=== PATIENT | male | born 2000 | race Two or more races ===

== ENCOUNTER 2024-11-11 04:18 | Emergency (ER) | payer MEDICAID ==
[~2024-11-11] VITALS: Ht 175.3 cm; Wt 107.8 kg
[2024-11-11 04:40] VITALS: TEMP 97.7; O2SAT 98
[2024-11-11] MEDS: PANTOPRAZOLE 40 MG TAB PO ONE (04:56)
[2024-11-11 04:57] VITALS: BP 147/75; PULSE 76; RESP 14
[2024-11-11] MEDS: MORPHINE SULFATE INJ 2 MG/ml SYRG IM ONE (04:57)
--- NOTE | 2024-11-11 05:10 | ED.PDOC ---
History of Present Illness HPI Comments This is a 24-year-old male with no past medical history who presented to the ER with a chief complaint of epigastric abdominal pain starting earlier this midnight, patient reports that he had dinner at 4:00 p.m. and he experienced severe epigastric pain which kept on worsening, does not radiate, denies nausea or vomiting, denies any fever or chills, denies any urinary symptoms. Patient had never experienced this severe pain in his life. He took Motrin 6 tablets which did not improve his condition. Patient seen and examined in the ER. CBC, CMP pending. Pantoprazole given. Morphine IM been given. Chief Complaint: Abdominal Pain Time Seen by MD: 04:21 Allergies: Coded Allergies: NO KNOWN ALLERGIES (Unverified , 11/11/24) Home Meds Active Scripts Pantoprazole Sodium Sesquihydr (Pantoprazole Sodium) 40 Mg Tab, 40 MG PO DAILY for 28 Days, #28 TAB 0 Refills Prov:SARAH FERGUSON RESIDENT 11/11/24 Information Source: Patient Mode of Arrival: Ambulatory Past Medical History PAST MEDICAL HISTORY: Denies Constitutional: denies: chills, diaphoresis, fatigue, fever, malaise, sweats, weakness, others EENTM: denies: blurred vision, double vision, ear bleeding, ear discharge, ear drainage, ear pain, ear ringing, eye pain, eye redness, hearing loss, mouth pain, mouth swelling, nasal discharge, nose bleeding, nose congestion, nose pain, photophobia, tearing, throat pain, throat swelling, voice changes, others Respiratory: denies: cough, hemoptysis, orthopnea, SOB at rest, shortness of breath, SOB with excertion, stridor, wheezing, others Cardiovascular: denies: chest pain, dizzy spells, diaphoresis, Dyspnea on exertion, edema, irregular heart beat, left arm pain, lightheadedness, palpitations, PND, syncope, others Gastrointestinal: reports: abdominal pain Genitourinary: denies: burning, dysuria, flank pain, frequency, hematuria, incontinence, penile discharge, penile sore, pain, testicle pain, testicle swelling, urgency, others Neurological: denies: dizziness, fainting, headache, left sided numbness, left sided weakness, numbness, paresthesia, pre-existing deficit, right sided numbness, right sided weakness, seizure, speech problems, tingling, tremors, weakness, others Musculoskeletal: denies: back pain, gout, joint pain, joint swelling, muscle pain, muscle stiffness, neck pain, others Integumetry: denies: bruises, change in color, change in hair/nails, dryness, laceration, lesions, lumps, rash, wounds, others Allergic/Immunocompromised: denies: Difficulty Healing, Frequent Infections, Hives, Itching, others Hematologic/Lymphatic: denies: anemia, blood clots, easy bleeding, easy bruising, swollen glands, others Endocrine: denies: excessive hunger, excessive sweating, excessive thirst, excessive urination, flushing, intolerance to cold, intolerance to heat, unexplained weight gain, unexplained weight loss, others Psychiatric: denies: anxiety, bipolar disorder, depression, hopeless, panic disorder, schizophrenia, sleepless, suicidal, others Physical Exam General Appearance: No Apparent Distress, Normal HEENT: Normal ENT Inspection, Pharynx Normal, TMs Normal Neck: Full Range of Motion, Non-Tender, Normal, Normal Inspection Respiratory: Chest Non-Tender, Lungs Clear, No Accessory Muscle Use, No Respiratory Distress, Normal Breath Sounds Cardiovascular: No Edema, No JVD, No Murmur, No Gallop, Normal Peripheral Pulses, Regular Rate/Rhythm Breast Exam: Deferred Gastrointestinal: Epigastric, No Organomegaly, No Pulsatile Mass, Normal Bowel Sounds, Soft, Tenderness Genitalia: Deferred Pelvic: Deferred Rectal: Deferred Extremities: No calf tenderness, Normal capillary refill, Normal inspection, Normal range of motion, Non-tender, No pedal edema Musculoskeletal : Apperance: Normal Neurologic: Alert, middle school tutor II-XII nml as Tested, No Motor Deficits, Normal Affect, Normal Mood, No Sensory Deficits Cerebellar Function: Normal Reflexes: Normal Skin: Dry, Normal Color, Warm Lymphatic: No Adenopathy Was a procedure done? Was a procedure done?: No Differential Dx Considerations may include: Peptic ulcer disease/esophageal spasm/colitis/nephrolithiasis X-Ray, Labs, Meds, VS Vital Signs Date Time Temp Pulse Resp B/P (MAP) Pulse Ox O2 Delivery O2 Flow Rate FiO2 11/11/24 04:57 76 14 147/75 11/11/24 04:40 Room Air* 0 21 11/11/24 04:40 97.7 76 14 147/75 (99) 98 97.7 11/11/24 04:20 98.1 75 18 166/85 96 98.1 Lab Test 11/11/24 04:55 Range/Units White Blood Count 9.7 4.4-10.8 10^3/uL Red Blood Count 5.59 4.5-5.90 10^6/uL Hemoglobin 16.8 13.5-17.5 g/dL Hematocrit 47.7 41.0-53.0 % Mean Corpuscular Volume 85.4 80.0-100.0 fL Mean Corpuscular Hemoglobin 30.1 28.0-32.0 pg Mean Corpuscular Hemoglobin Concent 35.3 32.0-36.0 g/dL Red Cell Distribution Width 13.8 11.8-14.3 % Platelet Count 277 140-450 10^3/uL Mean Platelet Volume 9.3 6.9-10.8 fL Neutrophils (%) (Auto) 70.2 37.0-80.0 % Lymphocytes (%) (Auto) 20.7 10.0-50.0 % Monocytes (%) (Auto) 5.8 0.0-12.0 % Eosinophils (%) (Auto) 2.9 0.0-7.0 % Basophils (%) (Auto) 0.4 0.0-2.0 % Neutrophils # (Auto) 6.8 1.6-8.6 10 ^3/uL Lymphocytes # (Auto) 2.0 0.4-5.4 10 ^3/uL Monocytes # (Auto) 0.6 0-1.3 10 ^3/uL Eosinophils # (Auto) 0.3 0-0.8 10 ^3/uL Basophils # (Auto) 0 0-0.2 10 ^3/uL Nucleated Red Blood Cells 0.1 % Sodium Level 137 136-145 mmol/L Potassium Level 3.6 3.5-5.1 mmol/L Chloride Level 102 98-107 mmol/L Carbon Dioxide Level 22 20-31 mmol/L Anion Gap 13 5-15 Blood Urea Nitrogen 6 L 9-23 mg/dL Creatinine 0.77 0.700-1.30 mg/dL Glomerular Filtration Rate Calc 127 >90 mL/min BUN/Creatinine Ratio 7.8 L 10.0-20.0 Serum Glucose 356 H 74-106 mg/dL Calcium Level 9.4 8.7-10.4 mg/dL Total Bilirubin 0.8 0.2-1.0 mg/dL Aspartate Amino Transferase (AST) 105 H 13-40 U/L Alanine Aminotransferase (ALT) 164 H 7-40 U/L Alkaline Phosphatase 106 46-116 U/L Total Protein 8.1 5.7-8.2 g/dL Albumin 4.5 3.2-4.8 g/dL Current Medications Medications (Trade) Dose Ordered Sig/Jnen Route Start Time Stop Time Status Last Admin Morphine Sulfate 1 mg ONCE ONCE IM 11/11/24 04:45 11/11/24 04:46 DC 11/11/24 04:57 Pantoprazole Sodium (Protonix Tablet) 40 mg ONCE ONCE PO 11/11/24 04:45 11/11/24 04:46 DC 11/11/24 04:56 X-Ray, Labs, Meds, VS Comment CBC, CMP Time of 1ST Reevaluation: 05:00 Reevaluation 1ST: Improved Time of 2ND Reevaluation: 06:00 Reevaluation 2ND: Resolved Patient Education/Counseling: Diagnosis, Treatment, Prognosis, Need For Follow Up Family Education/Counseling: No Family Present SEPSIS Sepsis Screen Date sepsis recognized/suspect: Nov 11, 2024 Time Sepsis recognized/suspect: 419 Recent Procedure: No On Antibiotic Therapy: No Respiratory Rate >20: No Heart Rate >90: No Temp<36 C (96.8 F) or >38.3 C: No SBP <90 or MAP <65 mmHG: No New Acute Mental Status Change: No Is the patient on CPAP, BIPAP,: No Vital Signs Date Time Temp Pulse Resp B/P (MAP) Pulse Ox O2 Delivery O2 Flow Rate FiO2 11/11/24 04:57 76 14 147/75 11/11/24 04:40 Room Air* 0 21 11/11/24 04:40 97.7 76 14 147/75 (99) 98 97.7 11/11/24 04:20 98.1 75 18 166/85 96 98.1 Laboratory Tests Test 11/11/24 04:55 White Blood Count 9.7 10^3/uL (4.4-10.8) Medications Medications Dose Ordered Sig/Jenn Route Start Time Stop Time Status Last Admin Dose Admin Morphine Sulfate 1 mg ONCE ONCE IM 11/11/24 04:45 11/11/24 04:46 DC 11/11/24 04:57 Pantoprazole Sodium 40 mg ONCE ONCE PO 11/11/24 04:45 11/11/24 04:46 DC 11/11/24 04:56 Departure 1 Departure Time of Disposition: 06:30 Impression: Primary Impression: GERD (gastroesophageal reflux disease) Disposition: 01 HOME / SELF CARE / HOMELESS Condition: Stable e-Prescriptions Pantoprazole Sodium Sesquihydr (Pantoprazole Sodium) 40 Mg Tab 40 MG PO DAILY for 28 Days, #28 TAB 0 Refills Prov: SARAH FERGUSON RESIDENT 11/11/24 Critical Care Note Critical Care Time?: No Stability Stability form required: No SARAH FERGUSON RESIDENT Nov 11, 2024 05:10
[2024-11-11 05:20] LABS: Hematocrit 47.7 % (41.0-53.0); Hemoglobin 16.8 g/dL (13.5-17.5); Mean Corpuscular Hemoglobin 30.1 pg (28.0-32.0); Mean Corpuscular Volume 85.4 fL (80.0-100.0); Nucleated Red Blood Cells % 0.1 %
[2024-11-11 05:29] LABS: Albumin 4.5 g/dL (3.2-4.8); Alkaline Phosphatase 106 U/L (46-116); Anion Gap 13 (5-15); BUN/Creatinine Ratio 7.8 (10.0-20.0); Bilirubin, Total 0.8 mg/dL (0.2-1.0); Calcium 9.4 mg/dL (8.7-10.4); Carbon Dioxide 22 mmol/L (20-31); Chloride 102 mmol/L (98-107); Potassium 3.6 mmol/L (3.5-5.1); Sodium 137 mmol/L (136-145); Total Protein 8.1 g/dL (5.7-8.2)
[2024-11-11 05:31] LABS: Alanine Aminotransferase 164 U/L (7-40); Blood Urea Nitrogen 6 mg/dL (9-23); Glucose 356 mg/dL (74-106)
[2024-11-11] MEDS ORDERED: PANT40T PO (06:16)
== END 2024-11-11 06:54 | disposition home or self-care (01) ==
LOC: ER 04:18
DX: K21.9 Gastro-esophageal reflux disease without esophagitis (principal); Z79.899 Other long term (current) drug therapy
CPT/HCPCS: 36415; 80053; 83690; 85025; 96372; 99283; J2270

== ENCOUNTER 2024-11-11 08:54 | Inpatient (IN) | payer MEDICAID ==
[~2024-11-11] VITALS: Ht 175.3 cm; Wt 110.0 kg
[~2024-11-11 08:54] MED LIST: PANT40T PO
[2024-11-11] MEDS: SODIUM CHLORIDE 0.9% 1,000 ML IV ONE (10:21)
--- NOTE | 2024-11-11 10:34 | DVH ---
CLINICAL HISTORY: Pancreatitis TECHNIQUE: CT of the abdomen and pelvis was performed without IV contrast. This exam was performed ac cording to our departmental dose optimization program. Up-to-date CT equipment and radiation dose red uction techniques are utilized as appropriate. CTDI 24 DLP 1366 COMPARISON: None FINDINGS: Abdomen/Pelvis: The spleen, pancreas, adrenal glands, gallbladder, kidneys, bladder, and prostate gland are grossly u nremarkable. The liver is enlarged, measuring 32.2 cm in diameter. There is diffuse hepatic steatosis. The abdominal aorta is normal in course and caliber. There are no significant atherosclerotic calcifi cations. There is no free intraperitoneal air or fluid. There is no enlarged abdominal pelvic lymph node. There is no bowel wall thickening or dilatation. The appendix is normal. Other: The imaged lower thorax is unremarkable. No acute osseous abnormality is evident. Impression: No acute noncontrast CT abnormality in the abdomen or pelvis. Hepatomegaly with diffuse hepatic steatosis.
--- NOTE | 2024-11-11 10:36 | ED.PDOC ---
GI ASSESSMENT HPI Comments Cesar Zuñiga is a 24-year-old male, with no relevant past medical history. The patient presented today to the ED with chief complain of abdominal pain, 8/10, cramp-like, that started at midnight, the pain localized in the epigastric area without irradiation, associated with nausea. The patient denies vomit, fever, chills, diarrhea, urinary symptoms, weight loss or other. First time of the episode. On further questioning the patient reports he has not seen a doctor in more than 4 years, he recently has relocated to the [facility]. Today, the pain progressed to 9/10, this prompted his visit to the ED. On the ED, CBC showed WBC 9.7, Glucose 356mg/dl, Lipase: 327, AST 105, ALT 164. Morphine was administrated and the pain improved 3/10. A CT Abd/Pelvis has been ordered. The patient will be admitted for further assessment and management. Chief Complaint: Abdominal Pain Time Seen by MD: 08:56 Reviewed Notes: Nurses Notes, Medications, Allergies Allergies: Coded Allergies: NO KNOWN ALLERGIES (Unverified , 11/11/24) Home Meds Active Scripts Pantoprazole Sodium Sesquihydr (Pantoprazole Sodium) 40 Mg Tab, 40 MG PO DAILY for 28 Days, #28 TAB 0 Refills Prov:SARAH FERGUSON RESIDENT 11/11/24 Information Source: Patient, Relative (Mother) Mode of Arrival: Ambulatory Timing: Hours Duration: Since onset Quality: Cramping Vomitus: None Stool: Normal Severity: Moderate Recent: None Recent Hx of: None Pain Location: Epigastric Modifying Factors: Food Past Medical History PAST MEDICAL HISTORY: Denies Physical Exam General Appearance: Moderate Distress HEENT: Normal ENT Inspection, Pharynx Normal, TMs Normal Neck: Full Range of Motion, Non-Tender, Normal, Normal Inspection Respiratory: Chest Non-Tender, Lungs Clear, No Accessory Muscle Use, No Respiratory Distress, Normal Breath Sounds Cardiovascular: No Edema, No JVD, No Murmur, No Gallop, Normal Peripheral Pulses, Regular Rate/Rhythm Breast Exam: Deferred Gastrointestinal: Epigastric, Normal Bowel Sounds, Tenderness (Tenderness over the epigastric area.), Other (Non distended, bowel movements present, soft, epigastric area is tender to deep palpation. ) Genitalia: Deferred Pelvic: Deferred Rectal: Deferred Extremities: No calf tenderness, Normal capillary refill, Normal inspection, Normal range of motion, Non-tender, No pedal edema Neurologic: Alert, spine specialist II-XII nml as Tested, No Motor Deficits, Normal Affect, Normal Mood, No Sensory Deficits Cerebellar Function: Normal Reflexes: Normal Skin: Dry, Normal Color, Warm Lymphatic: No Adenopathy Was a procedure done? Was a procedure done?: No GI differential Dx Differential Diagnosis: Cholecystitis, Gastritis/PUD, Gastroenteritis, Pancreatitis X-Ray, Labs, Meds, VS Vital Signs Date Time Temp Pulse Resp B/P (MAP) Pulse Ox O2 Delivery O2 Flow Rate FiO2 11/11/24 10:14 98.1 95 19 146/76 (99) 95 98.1 11/11/24 08:56 97.8 103 18 144/81 96 97.8 Current Medications Medications (Trade) Dose Ordered Sig/Jenn Route Start Time Stop Time Status Last Admin Sodium Chloride 1,000 ml @ 75 mls/hr [id number] ONCE IV 11/11/24 10:00 11/11/24 13:12 DC 11/11/24 10:21 X-Ray, Labs, Meds, VS Comment The patient is been re-evaluated, VS, BP 146/76, 95bpm. Pain level has improved 3/10. CT abdomen shows: No acute noncontrast CT abnormality in the abdomen or pelvis. Hepatomegaly with diffuse hepatic steatosis. The patient will be admitted for further assessment and management. Time of 1ST Reevaluation: 11:50 Reevaluation 1ST: Improved Patient Education/Counseling: Diagnosis, Treatment, Prognosis, Need For Follow Up Family Education/Counseling: Diagnosis, Treatment, Prognosis SEPSIS Sepsis Screen Date sepsis recognized/suspect: Nov 11, 2024 Time Sepsis recognized/suspect: 0857 Recent Procedure: No On Antibiotic Therapy: No Respiratory Rate >20: No Heart Rate >90: Yes Temp<36 C (96.8 F) or >38.3 C: No SBP <90 or MAP <65 mmHG: No New Acute Mental Status Change: No Is the patient on CPAP, BIPAP,: No Physician Orders Npo (Nothing By Mouth) Diet (11/11/24 Lunch) Ct Ab Pel Wo Con-No Oral Or Iv (11/11/24 09:47) Vital Signs Date Time Temp Pulse Resp B/P (MAP) Pulse Ox O2 Delivery O2 Flow Rate FiO2 11/11/24 10:14 98.1 95 19 146/76 (99) 95 98.1 11/11/24 08:56 97.8 103 18 144/81 96 97.8 Medications Medications Dose Ordered Sig/Jenn Route Start Time Stop Time Status Last Admin Dose Admin Sodium Chloride 1,000 ml @ 75 mls/hr [id number] ONCE IV 11/11/24 10:00 11/11/24 13:12 DC 11/11/24 10:21 Departure 1 Departure Time of Disposition: 11:55 Impression: Primary Impression: Acute pancreatitis Additional Impression: Uncontrolled diabetes mellitus Disposition: ADMITTED INPATIENT Admit to: Med Surg Condition: Good Comments Goals of care discussed with the patient > 35 min. Discussed plan of care with Dr. Carballo Code status: Full code PCP: No established yet. Upon discharge, will be sent to D/C clinic Plan discussed with: Patient and his mother, the patient agrees with the admission plan. Critical Care Note Critical Care Time?: No Stability Stability form required: No Heart Score Heart Score: Heart Score Response (Comments) Value History N/A 0 EKG N/A 0 Age N/A 0 Risk Factors N/A 0 Troponin N/A 0 Total 0 AGA SIMMS RESIDENT Nov 11, 2024 10:36
--- NOTE | 2024-11-11 12:49 | DVHHP2 ---
History of Present Illness Reason for Visit: Abdominal pain with nausea History of Present Illness Cesar Goodman is a 24-year-old male with no past medical history who reports to the ED with epigastric abdominal pain with nausea, reports it as 5/10 sharp and constant. He also endorses that it started last night. He states that it is worse when eating. He states that there are no alleviating factors. Patient also reports that he had some nausea but no vomiting. He also endorses that he likes to eat spicy foods. Patient denies any recent trauma or injury, recent sick contacts, recent travels, recent ingestion of spoiled food, chest pain, shortness of breath, fever, chills, lightheadedness, weakness, dizziness, vomiting, diarrhea, or urinary symptoms. Past Surgical History: None Family History: DM, Other (Mom with diabetes) Smoke: No ALCOHOL: none Drugs: None Lives: with Family Domestic Violence: Neg Review of Systems Gastrointestinal: Nausea, Abdominal Pain Allergies: Coded Allergies: NO KNOWN ALLERGIES (Unverified , 11/11/24) Exam Vital Signs Vital Signs Date Time Temp Pulse Resp B/P (MAP) Pulse Ox O2 Delivery O2 Flow Rate FiO2 11/11/24 10:14 98.1 95 19 146/76 (99) 95 98.1 General Appearance: Alert, Oriented X3, Cooperative, No acute distress HEENT: Atraumatic, PERRLA, EOMI, Mucous membr. moist/pink Respiratory: Clear to auscultation, Normal air movement Cardiovascular: Normal S1, Normal S2, No murmurs Abdominal: Normal bowel sounds, Soft Extremities: No clubbing, No cyanosis, No edema, Normal pulses, No tenderness/swelling Neuro: Normal gait, Normal speech, Strength at 5/5 X4 ext, Normal tone, Sensation intact Psych/Mental Status: Mental status NL, Mood NL Labs/Xrays CLINICAL HISTORY: Pancreatitis TECHNIQUE: CT of the abdomen and pelvis was performed without IV contrast. This exam was performed according to our departmental dose optimization program. Up-to-date CT equipment and radiation dose reduction techniques are utilized as appropriate. CTDI 24 DLP 1366 COMPARISON: None FINDINGS: Abdomen/Pelvis: The spleen, pancreas, adrenal glands, gallbladder, kidneys, bladder, and prostate gland are grossly unremarkable. The liver is enlarged, measuring 32.2 cm in diameter. There is diffuse hepatic steatosis. The abdominal aorta is normal in course and caliber. There are no significant atherosclerotic calcifications. There is no free intraperitoneal air or fluid. There is no enlarged abdominal pelvic lymph node. There is no bowel wall thickening or dilatation. The appendix is normal. Other: The imaged lower thorax is unremarkable. No acute osseous abnormality is evident. Impression: No acute noncontrast CT abnormality in the abdomen or pelvis. Hepatomegaly with diffuse hepatic steatosis. INDICATION: r/o pancreatitis TECHNIQUE: Multiple real-time sonographic images were obtained of the right upper quadrant. COMPARISON: None FINDINGS: The liver demonstrates increased echotexture without focal mass lesions. The liver measures 25.5 cm. There is no intrahepatic or extrahepatic ductal dilatation. The common duct measures 0.4 cm. The gallbladder is without evidence of stone or sludge. The gallbladder wall measures 0.2 cm and is within normal limits. The right kidney measures 13.5 cm. The right kidney is normal in contour, size, and shape. The echogenicity is normal. There is no hydronephrosis. The pancreas is not well visualized due to overlying bowel gas. IMPRESSION: No sonographic evidence of gallstones or acute cholecystitis. Hepatic steatosis and hepatomegaly. SEPSIS Sepsis Screen Date sepsis recognized/suspect: Nov 11, 2024 Time Sepsis recognized/suspect: 0857 Recent Procedure: No On Antibiotic Therapy: No Respiratory Rate >20: No Heart Rate >90: Yes Temp<36 C (96.8 F) or >38.3 C: No SBP <90 or MAP <65 mmHG: No New Acute Mental Status Change: No Is the patient on CPAP, BIPAP,: No Physician Orders Npo (Nothing By Mouth) Diet (11/11/24 Lunch) Sodium Chloride 0.9% (11/11/24 10:00) Ct Ab Pel Wo Con-No Oral Or Iv (11/11/24 09:47) Complete Blood Count (11/11/24 12:45) Basic Metabolic Panel (11/11/24 12:45) Vital Signs Date Time Temp Pulse Resp B/P (MAP) Pulse Ox O2 Delivery O2 Flow Rate FiO2 11/11/24 10:14 98.1 95 19 146/76 (99) 95 98.1 11/11/24 08:56 97.8 103 18 144/81 96 97.8 Medications Medications Dose Ordered Sig/Jenn Route Start Time Stop Time Status Last Admin Dose Admin Sodium Chloride 1,000 ml @ 75 mls/hr [id number] ONCE IV 11/11/24 10:00 11/11/24 23:19 11/11/24 10:21 75 MLS/HR Assessment/Plan Assessment/Plan Assessment Intractable abdominal pain with nausea Biliary colic ? Acute pancreatitis Hyperglycemia Diabetes Transaminitis Hyperlipasemia Hepatomegaly with diffuse hepatic steatosis Obesity Plan Admit to med surge Antiemetics Pain management CT abdomen and pelvis noted Trend LFTs Hemoglobin A1c ISS and Accu-Cheks CBC/BMP Abdominal ultrasound NPO until symptoms resolve IV fluids No home medications per patient DVT prophylaxis-not indicated patient ambulating PUD prophylaxis-not indicated history of GERD or GI bleed Discussed plan of care with patient and nurse Diabetic education Counseled patient on lifestyle modifications, diet, and exercise [id number] Preventive counseling healthy eating habits, physical activity, and regular checkups Plan discussed with: Patient My Orders Orders - AKSHAT NANCE Procedure Category Date Status Time Complete Blood Count LAB 11/11/24 Transmitted 12:45 Basic Metabolic Panel LAB 11/11/24 Transmitted 12:45 Date of Service: Nov 11, 2024 Billing Provider: AKSHAT NANCE Common Visit Codes: [id number] INP/OBS CARE (HIGH) Secondary Visit Codes: [id number] COUNSELING IND AKSHAT NANCE Nov 11, 2024 12:49
[2024-11-11] MEDS ORDERED: DEXTROSE (50%) 50ML SYRG IV PRN (13:00)
[2024-11-11] MEDS ORDERED: HYDROmorphone HCL 2 MG/ML VL/or syr IV PRN (13:00)
[2024-11-11] MEDS ORDERED: MORPHINE SULFATE INJ 2 MG/ml SYRG IV PRN (13:00)
[2024-11-11] MEDS ORDERED: ONDANSETRON HCL 4 MG/2 ML VIAL IV PRN (13:00)
[2024-11-11] MEDS ORDERED: HYDROcodone-ACET 5/325MG TAB PO PRN (13:00)
[2024-11-11] MEDS: LACTATED RINGER'S 1,000 ML IV ONE (13:00)
[2024-11-11 13:13] LABS: Hematocrit 48.6 % (41.0-53.0); Hemoglobin 16.9 g/dL (13.5-17.5); Mean Corpuscular Hemoglobin 29.8 pg (28.0-32.0); Mean Corpuscular Volume 85.7 fL (80.0-100.0); Nucleated Red Blood Cells % 0.1 %
[2024-11-11 13:18] LABS: Chloride 101 mmol/L (98-107); Potassium 4.0 mmol/L (3.5-5.1); Sodium 137 mmol/L (136-145)
[2024-11-11 13:19] LABS: Anion Gap 11 (5-15); Calcium 9.7 mg/dL (8.7-10.4); Carbon Dioxide 25 mmol/L (20-31)
[2024-11-11 13:24] LABS: BUN/Creatinine Ratio 7.8 (10.0-20.0); Blood Urea Nitrogen 6 mg/dL (9-23); Glucose 277 mg/dL (74-106)
--- NOTE | 2024-11-11 13:40 | DVH ---
INDICATION: r/o pancreatitis TECHNIQUE: Multiple real-time sonographic images were obtained of the right upper quadrant. COMPARISON: None FINDINGS: The liver demonstrates increased echotexture without focal mass lesions. The liver measure s 25.5 cm. There is no intrahepatic or extrahepatic ductal dilatation. The common duct measures 0.4 cm. The gallbladder is without evidence of stone or sludge. The gallbladder wall measures 0.2 cm and is w ithin normal limits. The right kidney measures 13.5 cm. The right kidney is normal in contour, size, and shape. The echoge nicity is normal. There is no hydronephrosis. The pancreas is not well visualized due to overlying bowel gas. IMPRESSION: No sonographic evidence of gallstones or acute cholecystitis. Hepatic steatosis and hepatomegaly.
[2024-11-11 15:10] VITALS: RESP 18; O2SAT 98
[2024-11-11 15:59] VITALS: BP 147/63; PULSE 82; RESP 17; TEMP 98.1; O2SAT 93
[2024-11-11 16:39] VITALS: BP 125/69; PULSE 89; RESP 18; TEMP 99; O2SAT 98
[2024-11-11 17:00] VITALS: BP 131/62; PULSE 86; RESP 17; TEMP 99.2; O2SAT 95
[2024-11-11] MEDS: ACCU-CHEK COMFORT CURVE STRIP VI SCH (18:07)
[2024-11-11] MEDS: InsuLIN REG 1unit/0.01ml Soln (100units/ml) SC SCH (18:07)
[2024-11-11 21:00] VITALS: BP 134/79; PULSE 78; RESP 18; TEMP 97.9; O2SAT 96
[2024-11-12] VITALS (8 sets, daily range): BP systolic 112–158; BP diastolic 52–84; PULSE 66–76; RESP 14–18; TEMP 97.7–99; O2SAT 95–98
[2024-11-12 06:34] LABS: Alkaline Phosphatase 77 U/L (46-116)
[2024-11-12 06:37] LABS: Alanine Aminotransferase 158 U/L (7-40); Lipase 64 U/L (12-53)
[2024-11-12] MEDS: ACETAMINOPHEN 325 MG TAB PO PRN (09:29)
--- NOTE | 2024-11-12 12:40 | DVHPN2 ---
Reviewed: Care Plan, H&P, Labs, Medications, Previous Orders, Radiology Changes from previous H/P or p: No Changes Gastrointestinal: Nausea, Abdominal Pain Objective Vitals Vital Signs Date Time Temp Pulse Resp B/P (MAP) Pulse Ox O2 Delivery O2 Flow Rate FiO2 11/12/24 09:15 99.0 69 14 141/69 (93) 96 99.0 11/12/24 08:12 Room Air* 0 21 Intake/Output Intake and Output 11/12/24 07:00 Intake Total 0 ml Balance 0 ml Intake Oral 0 ml # Voids 6 Medications Current Medications Medications Dose Ordered Sig/Jenn Route Start Time Stop Time Status Last Admin Dose Admin Acetaminophen/ Hydrocodone Bitart 1 tab Q4HP PRN PO 11/11/24 13:00 Ondansetron HCl 4 mg Q4HP PRN IV 11/11/24 13:00 Acetaminophen 650 mg Q6HP PRN PO 11/11/24 13:00 11/12/24 09:29 650 MG Hydromorphone HCl 1 mg Q4HPRN PRN IV 11/11/24 13:00 Diagnostic Test (Pha) 1 strip Q6HR 11/11/24 18:00 11/12/24 11:21 1 STRIP Insulin Human Regular Q6HR SC 11/11/24 18:00 11/12/24 11:37 4 UNITS Dextrose 50 ml UD PRN IV 11/11/24 13:00 Laboratory Results Laboratory Tests 11/11/24 12:55 Chemistry Test 11/11/24 12:55 Calcium Level 9.7 mg/dL (8.7-10.4) Lipid panel Test 11/12/24 05:56 Lipase 64 U/L (12-53) H LFT Test 11/12/24 05:56 Alanine Aminotransferase (ALT) 158 U/L (7-40) H Alkaline Phosphatase 77 U/L (46-116) Aspartate Amino Transferase (AST) 165 U/L (13-40) H HgA1c, TSH Test 11/11/24 12:55 Hemoglobin A1c 12.7 % A1C (<5.7) H Labs and/or images reviewed: Labs reviewed by me, Image(s) reviewed by me Assessment/Plan Assessment/Plan Intractable abdominal pain with nausea Biliary colic Acute pancreatitis with lipase of 65 Hyperglycemia Diabetes Transaminitis Hyperlipasemia Hepatomegaly with diffuse hepatic steatosis Obesity CT abdomen pelvis without contrast negative for any acute pathology Gallbladder ultrasound negative Plan discussed with: Patient Date of Service: Nov 12, 2024 Billing Provider: CHEYENNE TAYLOR MD Common Visit Codes: [id number] INP/OBS CARE(HIGH) CHEYENNE TAYLOR MD Nov 12, 2024 12:40
[2024-11-12 15:46] LABS: Barbiturate Scree,Urine Neg (NEGATIVE); Benzodiazephine Screen, Urine Neg (NEGATIVE); Cannabinoid Screen, Urine Neg (NEGATIVE); Cocaine Screen, Urine Neg (NEGATIVE); Phencyclidine Screen, Urine Neg (NEGATIVE)
[2024-11-12 15:47] LABS: Amphetamine Screen, Urine Neg (NEGATIVE)
[2024-11-12 19:25] LABS: Opiate Scree,Urine Neg (NEGATIVE)
[2024-11-13] VITALS (8 sets, daily range): BP systolic 114–144; BP diastolic 41–86; PULSE 65–105; RESP 16–18; TEMP 98.2–98.7; O2SAT 96–98
--- NOTE | 2024-11-13 10:35 | DVHPN2 ---
Reviewed: Care Plan, H&P, Labs, Medications, Previous Orders, Radiology Changes from previous H/P or p: No Changes Gastrointestinal: Nausea, Abdominal Pain Objective Vitals Vital Signs Date Time Temp Pulse Resp B/P (MAP) Pulse Ox O2 Delivery O2 Flow Rate FiO2 11/13/24 09:00 98.2 80 16 133/65 (87) 97 98.2 11/13/24 07:47 Room Air* 0 21 Intake/Output Intake and Output 11/13/24 07:00 Intake Total 500 ml Balance 500 ml Intake Oral 500 ml # Voids 3 # Bowel Movements 1 Medications Current Medications Medications Dose Ordered Sig/Jenn Route Start Time Stop Time Status Last Admin Dose Admin Acetaminophen/ Hydrocodone Bitart 1 tab Q4HP PRN PO 11/11/24 13:00 Ondansetron HCl 4 mg Q4HP PRN IV 11/11/24 13:00 Acetaminophen 650 mg Q6HP PRN PO 11/11/24 13:00 11/12/24 18:10 650 MG Hydromorphone HCl 1 mg Q4HPRN PRN IV 11/11/24 13:00 Diagnostic Test (Pha) 1 strip Q6HR 11/11/24 18:00 11/13/24 05:21 1 STRIP Insulin Human Regular Q6HR SC 11/11/24 18:00 11/13/24 05:23 6 UNITS Dextrose 50 ml UD PRN IV 11/11/24 13:00 Laboratory Results Laboratory Tests 11/11/24 12:55 Lipid panel Test 11/13/24 05:34 Lipase 47 U/L (12-53) Labs and/or images reviewed: Labs reviewed by me, Image(s) reviewed by me Assessment/Plan Assessment/Plan Intractable abdominal pain with nausea Biliary colic Acute pancreatitis with lipase of 65 Hyperglycemia Uncontrolled new onset diabetes A1c 12.7: Diabetic teaching aggressive sliding scale Transaminitis Hyperlipasemia Hepatomegaly with diffuse hepatic steatosis Obesity Elevated liver enzymes consult for GI , hepatitis panel CT abdomen pelvis without contrast negative for any acute pathology Gallbladder ultrasound negative Plan discussed with: Patient My Orders Orders - CHEYENNE TAYLOR MD Procedure Category Date Status Time Soft Diet DIET 11/12/24 Transmitted Lunch Date of Service: Nov 13, 2024 Billing Provider: CHEYENNE TAYLOR MD Common Visit Codes: [id number] INP/OBS CARE(HIGH) CHEYENNE TAYLOR MD Nov 13, 2024 10:35
[2024-11-13] MEDS ORDERED: DEXTROSE (50%) 50ML SYRG IV PRN (10:45)
[2024-11-13] MEDS: ACCU-CHEK COMFORT CURVE STRIP VI SCH (11:11)
[2024-11-13] MEDS: InsuLIN REG 1unit/0.01ml Soln (100units/ml) SC SCH (11:15)
--- NOTE | 2024-11-13 13:59 | DVH ---
EXAM: MRI MRCP MRI HISTORY: Acute pancreatitis COMPARISON: None TECHNIQUE: Multiplanar, multisequence imaging of the abdomen was performed without contrast. FINDINGS: [LOWER CHEST]: No pleural effusion. [LIVER]: Severe hepatomegaly measuring 31.2 cm. [SPLEEN]: Unremarkable. [PANCREAS]: The pancreas is normal in appearance without focal lesions. Normal pancreatic duct size. [GALLBLADDER AND DUCTS]: Gallbladder is normal in appearance. The cystic duct, right and left hepatic ducts, common hepatic duct, and common bile ducts are unremarkable. [ADRENAL GLANDS]: Unremarkable. [KIDNEYS]: Normal enhancement without suspicious lesions or hydronephrosis. [VISUALIZED BOWEL]: Grossly unremarkable. [VASCULATURE]: Unremarkable. [LYMPHADENOPATHY]: No evidence for lymphadenopathy. [ASCITES]: Absent. [MUSCULOSKELETAL]: Bone marrow signal is normal. [OTHER]: None IMPRESSION: 1. No definitive MR evidence of acute pancreatitis. 2. No cholelithiasis or choledocholithiasis. No intraperitoneal ascites.
--- NOTE | 2024-11-13 19:19 | DVHINCON2 ---
Date of service: Nov 13, 2024 History of Present Illness 24 y/o M pt with no PMH admitted with abd pain. He reports epigastric pain with spicy foods. No N/V, pain resolved during my encounter, tolerating diet well. Liver enzymes noted to be elevated. Denies alcohol abuse/recent abx or any med use/herbal supplement or steroid intake. No Fhx of GI malignancy or liver disease Past Medical History Reviewed Past Surgical History Reviewed Family History: Cardiovascular disease G8 MOTHER Diabetes mellitus G8 MOTHER G8 FATHER Allergies: Coded Allergies: NO KNOWN ALLERGIES (Unverified , 11/11/24) Home Meds No Active Prescriptions or Reported Meds Current Medications Current Medications Medications (Trade) Dose Ordered Sig/Jenn Route PRN Reason Start Time Stop Time Status Last Admin Diagnostic Test (Pha) (Accu-Chek Comfort Curve T) 1 strip Q6HR 11/13/24 12:00 11/13/24 17:18 Insulin Human Regular (InsuLIN R) Q6HR SC 11/13/24 12:00 11/13/24 17:25 Dextrose 50 ml UD PRN IV Blood Sugar LESS THAN 60 11/13/24 10:45 Review of Systems 14 point ROS negative except mentioned above Vital Signs Vital Signs Date Time Temp Pulse Resp B/P (MAP) Pulse Ox O2 Delivery O2 Flow Rate FiO2 11/13/24 16:59 98.2 65 16 130/82 (98) 98 98.2 11/13/24 07:47 Room Air* 0 21 Physical Exam GE: in no acute distress CVS: S1S2+ Lungs: clear Abdomen: soft, nondistended, nontender, BS+ Labs/Diagnostic Data Labs Test 11/13/24 17:17 11/13/24 05:34 11/12/24 12:40 11/12/24 05:56 Range/Units POC Glucose 240 H 70-106 mg/dl Lipase 47 12-53 U/L Urine Opiates Screen Neg NEGATIVE Urine Fentanyl Screen Neg NEGATIVE Urine Barbiturates Screen Neg NEGATIVE Urine Phencyclidine Screen Neg NEGATIVE Urine Amphetamines Screen Neg NEGATIVE Urine Benzodiazepines Screen Neg NEGATIVE Urine Cocaine Screen Neg NEGATIVE Urine Cannabinoids Screen Neg NEGATIVE Aspartate Amino Transferase (AST) 165 H 13-40 U/L Alanine Aminotransferase (ALT) 158 H 7-40 U/L Alkaline Phosphatase 77 46-116 U/L Test 11/11/24 12:55 Range/Units White Blood Count 9.9 4.4-10.8 10^3/uL Red Blood Count 5.67 4.5-5.90 10^6/uL Hemoglobin 16.9 13.5-17.5 g/dL Hematocrit 48.6 41.0-53.0 % Mean Corpuscular Volume 85.7 80.0-100.0 fL Mean Corpuscular Hemoglobin 29.8 28.0-32.0 pg Mean Corpuscular Hemoglobin Concent 34.8 32.0-36.0 g/dL Red Cell Distribution Width 13.8 11.8-14.3 % Platelet Count 288 140-450 10^3/uL Mean Platelet Volume 9.2 6.9-10.8 fL Neutrophils (%) (Auto) 77.4 37.0-80.0 % Lymphocytes (%) (Auto) 15.3 10.0-50.0 % Monocytes (%) (Auto) 5.4 0.0-12.0 % Eosinophils (%) (Auto) 1.6 0.0-7.0 % Basophils (%) (Auto) 0.3 0.0-2.0 % Neutrophils # (Auto) 7.6 1.6-8.6 10 ^3/uL Lymphocytes # (Auto) 1.5 0.4-5.4 10 ^3/uL Monocytes # (Auto) 0.5 0-1.3 10 ^3/uL Eosinophils # (Auto) 0.2 0-0.8 10 ^3/uL Basophils # (Auto) 0 0-0.2 10 ^3/uL Nucleated Red Blood Cells 0.1 % Sodium Level 137 136-145 mmol/L Potassium Level 4.0 3.5-5.1 mmol/L Chloride Level 101 98-107 mmol/L Carbon Dioxide Level 25 20-31 mmol/L Anion Gap 11 5-15 Blood Urea Nitrogen 6 L 9-23 mg/dL Creatinine 0.77 0.700-1.30 mg/dL Glomerular Filtration Rate Calc 127 >90 mL/min BUN/Creatinine Ratio 7.8 L 10.0-20.0 Serum Glucose 277 H 74-106 mg/dL Hemoglobin A1c 12.7 H <5.7 % A1C Calcium Level 9.7 8.7-10.4 mg/dL Assessment #Epigastric pain #Elevated liver enzymes, likely 2/2 MASH #Fatty liver #Obesity -Pepcid prn. Minimize food triggers -Check acute hep panel. If negative, check GRICELDA, ASMA, AMA, ceruloplasmin, ferritin to eval autoimmune etiology -Fibroscan as out pt -Mediterranean diet, regular exercise and wt loss rec Thank you for allowing me to participate in the care of this patient Plan discussed with: Patient, Other KRISTIN PEOPLES MD Nov 13, 2024 19:19
[2024-11-14] VITALS (7 sets, daily range): BP systolic 114–148; BP diastolic 67–93; PULSE 74–89; RESP 16–18; TEMP 98–98.4; O2SAT 96–100
--- NOTE | 2024-11-14 08:35 | DVHPN2 ---
Reviewed: Care Plan, H&P, Labs, Medications, Previous Orders, Radiology Changes from previous H/P or p: No Changes Gastrointestinal: Nausea, Abdominal Pain Objective Vitals Vital Signs Date Time Temp Pulse Resp B/P (MAP) Pulse Ox O2 Delivery O2 Flow Rate FiO2 11/14/24 05:16 98.3 83 17 114/67 (83) 98 98.3 11/13/24 20:00 Room Air* 0 21 Intake/Output Intake and Output 11/14/24 07:00 Intake Total 1400 ml Balance 1400 ml Intake Oral 1400 ml # Voids 6 # Bowel Movements 1 Medications Current Medications Medications Dose Ordered Sig/Jenn Route Start Time Stop Time Status Last Admin Dose Admin Acetaminophen/ Hydrocodone Bitart 1 tab Q4HP PRN PO 11/11/24 13:00 Ondansetron HCl 4 mg Q4HP PRN IV 11/11/24 13:00 Acetaminophen 650 mg Q6HP PRN PO 11/11/24 13:00 11/13/24 20:03 650 MG Hydromorphone HCl 1 mg Q4HPRN PRN IV 11/11/24 13:00 Dextrose 50 ml UD PRN IV 11/11/24 13:00 Cancel Diagnostic Test (Pha) 1 strip Q6HR 11/13/24 12:00 11/14/24 05:35 1 STRIP Insulin Human Regular Q6HR SC 11/13/24 12:00 11/14/24 05:37 8 UNITS Dextrose 50 ml UD PRN IV 11/13/24 10:45 Laboratory Results Laboratory Tests 11/11/24 12:55 Labs and/or images reviewed: Labs reviewed by me, Image(s) reviewed by me Assessment/Plan Assessment/Plan Intractable abdominal pain with nausea Biliary colic Acute pancreatitis with lipase of 65 Hyperglycemia Uncontrolled new onset type 1 diabetes A1c 12.7: Diabetic teaching aggressive sliding scale, may need insulin at the time of discharge Transaminitis Hyperlipasemia Hepatomegaly with diffuse hepatic steatosis Obesity Elevated liver enzymes consult for GI , hepatitis panel result pending CT abdomen pelvis without contrast negative for any acute pathology Gallbladder ultrasound negative Plan discussed with: Patient My Orders Orders - CHEYENNE TAYLOR MD Procedure Category Date Status Time * Gi Dvh Pricing/Signage Team Member CONS 11/13/24 Transmitted 10:32 Comprehensive LAB 11/13/24 In Process Hepatitis Panel 10:35 Mrcp Mri MRI 11/13/24 Resulted 10:36 Glucose Blood PHA 11/13/24 In Process (Accu-Chek Comfort 12:00 Insulin R (Human) PHA 11/13/24 In Process (Insulin R) 12:00 Dextrose 50% Syringe PHA 11/13/24 In Process 10:45 Date of Service: Nov 14, 2024 Billing Provider: CHEYENNE TAYLOR MD Common Visit Codes: [id number] INP/OBS CARE(HIGH) CHEYENNE TAYLOR MD Nov 14, 2024 08:35
[2024-11-15 01:00] VITALS: BP 123/83; PULSE 64; RESP 18; TEMP 98.1; O2SAT 96
[2024-11-15 05:00] VITALS: BP 142/88; PULSE 66; RESP 18; TEMP 98.1; O2SAT 99
[2024-11-15 09:00] VITALS: BP 132/79; PULSE 70; RESP 16; TEMP 97.9; O2SAT 98
--- NOTE | 2024-11-15 09:58 | DVHPN2 ---
Reviewed: Care Plan, H&P, Labs, Medications, Previous Orders, Radiology Changes from previous H/P or p: No Changes Gastrointestinal: Nausea, Abdominal Pain Objective Vitals Vital Signs Date Time Temp Pulse Resp B/P (MAP) Pulse Ox O2 Delivery O2 Flow Rate FiO2 11/15/24 05:00 98.1 66 18 142/88 (106) 99 98.1 11/14/24 20:00 Room Air* 0 21 Intake/Output Intake and Output 11/15/24 07:00 Intake Total 1300 ml Balance 1300 ml Intake Oral 1300 ml # Voids 4 Medications Current Medications Medications Dose Ordered Sig/Jenn Route Start Time Stop Time Status Last Admin Dose Admin Acetaminophen/ Hydrocodone Bitart 1 tab Q4HP PRN PO 11/11/24 13:00 Ondansetron HCl 4 mg Q4HP PRN IV 11/11/24 13:00 Acetaminophen 650 mg Q6HP PRN PO 11/11/24 13:00 11/13/24 20:03 650 MG Hydromorphone HCl 1 mg Q4HPRN PRN IV 11/11/24 13:00 Dextrose 50 ml UD PRN IV 11/11/24 13:00 Cancel Diagnostic Test (Pha) 1 strip Q6HR 11/13/24 12:00 11/15/24 05:10 1 STRIP Insulin Human Regular Q6HR SC 11/13/24 12:00 11/15/24 05:17 8 UNITS Dextrose 50 ml UD PRN IV 11/13/24 10:45 Laboratory Results Laboratory Tests 11/11/24 12:55 Labs and/or images reviewed: Labs reviewed by me, Image(s) reviewed by me Assessment/Plan Assessment/Plan Intractable abdominal pain with nausea Biliary colic Acute pancreatitis with lipase of 65 Hyperglycemia Uncontrolled new onset type 1 diabetes A1c 12.7: Diabetic teaching aggressive sliding scale, Transaminitis Hyperlipasemia Hepatomegaly with diffuse hepatic steatosis Obesity Elevated liver enzymes consult for GI , hepatitis panel result pending CT abdomen pelvis without contrast negative for any acute pathology Gallbladder ultrasound negative Plan discussed with: Patient Date of Service: Nov 15, 2024 Billing Provider: CHEYENNE TAYLOR MD Common Visit Codes: [id number] INP/OBS CARE(HIGH) CHEYENNE TAYLOR MD Nov 15, 2024 09:58
--- NOTE | 2024-11-15 10:10 | DVHDS2 ---
Discharge Summary Date of Admission Nov 11, 2024 at 12:49 Date of Discharge: Nov 15, 2024 Admitting Diagnosis Abdominal pain Wounds: None Labs/Diagnostic Data: Laboratory Results Test 11/15/24 05:08 11/13/24 05:34 11/12/24 12:40 11/12/24 05:56 POC Glucose 204 mg/dl (70-106) Lipase 47 U/L (12-53) Urine Opiates Screen Neg (NEGATIVE) Urine Fentanyl Screen Neg (NEGATIVE) Urine Barbiturates Screen Neg (NEGATIVE) Urine Phencyclidine Screen Neg (NEGATIVE) Urine Amphetamines Screen Neg (NEGATIVE) Urine Benzodiazepines Screen Neg (NEGATIVE) Urine Cocaine Screen Neg (NEGATIVE) Urine Cannabinoids Screen Neg (NEGATIVE) Aspartate Amino Transferase (AST) 165 U/L (13-40) Alanine Aminotransferase (ALT) 158 U/L (7-40) Alkaline Phosphatase 77 U/L (46-116) Test 11/11/24 12:55 White Blood Count 9.9 10^3/uL (4.4-10.8) Red Blood Count 5.67 10^6/uL (4.5-5.90) Hemoglobin 16.9 g/dL (13.5-17.5) Hematocrit 48.6 % (41.0-53.0) Mean Corpuscular Volume 85.7 fL (80.0-100.0) Mean Corpuscular Hemoglobin 29.8 pg (28.0-32.0) Mean Corpuscular Hemoglobin Concent 34.8 g/dL (32.0-36.0) Red Cell Distribution Width 13.8 % (11.8-14.3) Platelet Count 288 10^3/uL (140-450) Mean Platelet Volume 9.2 fL (6.9-10.8) Neutrophils (%) (Auto) 77.4 % (37.0-80.0) Lymphocytes (%) (Auto) 15.3 % (10.0-50.0) Monocytes (%) (Auto) 5.4 % (0.0-12.0) Eosinophils (%) (Auto) 1.6 % (0.0-7.0) Basophils (%) (Auto) 0.3 % (0.0-2.0) Neutrophils # (Auto) 7.6 10 ^3/uL (1.6-8.6) Lymphocytes # (Auto) 1.5 10 ^3/uL (0.4-5.4) Monocytes # (Auto) 0.5 10 ^3/uL (0-1.3) Eosinophils # (Auto) 0.2 10 ^3/uL (0-0.8) Basophils # (Auto) 0 10 ^3/uL (0-0.2) Nucleated Red Blood Cells 0.1 % Sodium Level 137 mmol/L (136-145) Potassium Level 4.0 mmol/L (3.5-5.1) Chloride Level 101 mmol/L (98-107) Carbon Dioxide Level 25 mmol/L (20-31) Anion Gap 11 (5-15) Blood Urea Nitrogen 6 mg/dL (9-23) Creatinine 0.77 mg/dL (0.700-1.30) Glomerular Filtration Rate Calc 127 mL/min (>90) BUN/Creatinine Ratio 7.8 (10.0-20.0) Serum Glucose 277 mg/dL (74-106) Hemoglobin A1c 12.7 % A1C (<5.7) Calcium Level 9.7 mg/dL (8.7-10.4) Other Laboratory Tests 11/11/24 12:55 Brief Hx & Hospital Course: 24-year-old male with previous history admitted for abdominal pain nausea and vomiting lipase was 65 diagnosed with acute pancreatitis treated with the IV fluids pain medications . Blood sugar 277 A1c 12.5 new diagnosis of type 1 diabetes treated with the aggressive insulin sliding scale. Patient has a educated about diabetes and the need to be on insulin. CT abdomen pelvis showed hepatomegaly with a mild transaminitis seen by GI Dr. Saravia. Hepatitis panel pending gallbladder ultrasound negative. His patient is feeling better with a controlled blood sugars and would like to be discharged home. Patient is discharged home on Lantus and Humalog quick pen. He will follow up with his primary Dr and also advised to follow up with the staff research associate Dr. Duckworth for adjustment of insulin dosages. Consults/Reason for consult GI Dr. Abbott Operations or Procedures CT abdomen pelvis without contrast Condition at Discharge: Fair Final Diagnosis/Problems List Intractable abdominal pain with nausea Biliary colic Acute pancreatitis with lipase of 65 Hyperglycemia Uncontrolled new onset type 1 diabetes A1c 12.7: Diabetic teaching aggressive sliding scale, Transaminitis Hyperlipasemia Hepatomegaly with diffuse hepatic steatosis Obesity Elevated liver enzymes consult for GI , hepatitis panel result pending CT abdomen pelvis without contrast negative for any acute pathology Gallbladder ultrasound negative Discharge Disposition: Home Discharge Instruct/Medications Diet: Consistent carbohydrate Activity: Light activity Follow Up/Referral: Follow up with your primary Dr in one week Follow up with the staff research associate Dr. Duckworth through your primary Dr in one week for adjustment of insulin dosage Check blood sugars 3 times a day and take insulin as prescribed Medications: Lantus Humalog KwikPen Transmitted to [facility] pharmacy No Active Prescriptions or Reported Meds 39 (Time taken for discharge summary 39 minutes) Discharge Statement: "Patient was advised to return to the ER or call 911 if any headaches, dizziness, shortness of breath, chest pain, abdominal pain, bleeding, fevers, or worsening of medical condition. Patient was counseled about treatment plan, medications, possible side effects, patientverbalized understanding. All questions were answered to the best of my ability. This discharge took greater then 30 minutes in planning, reviewing documentation, counseling the patient, and discussing with other team members." ASSESSMENT ASSESSMENT Hospital Course Improved Assessment Intractable abdominal pain with nausea Biliary colic Acute pancreatitis with lipase of 65 Hyperglycemia Uncontrolled new onset type 1 diabetes A1c 12.7: Diabetic teaching aggressive sliding scale, Transaminitis Hyperlipasemia Hepatomegaly with diffuse hepatic steatosis Obesity Elevated liver enzymes consult for GI , hepatitis panel result pending CT abdomen pelvis without contrast negative for any acute pathology Gallbladder ultrasound negative Date of Service: Nov 15, 2024 Billing Provider: CHEYENNE TAYLOR MD Common Visit Codes: [id number] DISCH DAY >30min CHEYENNE TAYLOR MD Nov 15, 2024 10:10
[2024-11-15 10:37] LABS: Hepatitis A Total Antibody Positive (Negative)
[2024-11-15 10:38] LABS: Hepatitis B Surface Antigen Negative (Negative); Hepatitis C Antibody Negative (Negative)
[2024-11-15 12:41] VITALS: BP 132/79; PULSE 70; RESP 16; TEMP 97.9; O2SAT 98
== END 2024-11-15 13:40 | disposition home or self-care (01) | DRG 282 ==
LOC: ER 08:54 → OVERFLOW 12:49 → CENTRAL 16:22
PROVIDERS: ADMIT Family Medicine; ATTEND Family Medicine
DX: K85.90 Acute pancreatitis without necrosis or infection, unspecified (principal); K80.50 Calculus of bile duct without cholangitis or cholecystitis without obstruction; R16.0 Hepatomegaly, not elsewhere classified; K76.0 Fatty (change of) liver, not elsewhere classified; E66.9 Obesity, unspecified; E10.65 Type 1 diabetes mellitus with hyperglycemia; R74.01 Elevation of levels of liver transaminase levels; Z83.3 Family history of diabetes mellitus; Z68.35 Body mass index [BMI] 35.0-35.9, adult; Z82.49 Family history of ischemic heart disease and other diseases of the circulatory system; Z79.4 Long term (current) use of insulin
CPT/HCPCS: 36415; 74176; 74181; 76705; 80048; 80307; 82962; 83036; 83690; 84075; 84450; 84460; 85025; 86704; 86706; 86708; 86803; 87340; 96360; G0378; J1815